=== PATIENT | female | born 1965 | race Caucasian/White ===

== ENCOUNTER 2020-09-23 15:22 | Inpatient (IN) | payer BC ==
[~2020-09-23] VITALS: Ht 165.1 cm; Wt 60.8 kg
--- NOTE | 2020-09-23 16:05 | Emergency Room Report ---
History of Present Illness General Chief Complaint: General Complaint Source: Patient Present Illness HPI 55-year-old female with history of BCIR here with abdominal pain and difficulty intubating. Patient has had the stoma for 8 years and has a history of one stoma revision. She says that over the past several days she has had difficulty and increased pain intubating. Denies fevers, chills, chest pain, palpitation, shortness of breath, back pain, nausea, vomiting, diarrhea, dysuria. Scheduled for stoma revision with Dr. Ivory. 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: Yes - 09/21/20 COVID-19 Screening: Negative COVID-19 COVID-19 Testing Source: drive thru Patient History Now: No Review of Systems All Other Systems: negative except mentioned in HPI Physical Exam Vital Signs Date Time Temp Pulse Resp B/P (MAP) Pulse Ox O2 Delivery O2 Flow Rate FiO2 09/23/20 15:25 98.6 98 19 124/71 (88) 98 Room Air Sp02 EP Interpretation: reviewed, normal General Appearance: no apparent distress, alert, non-toxic Head: normocephalic, atraumatic Eyes: bilateral eye normal inspection, bilateral eye PERRL ENT: hearing grossly normal, normal pharynx, no angioedema, normal voice Neck: full range of motion, supple/symm/no masses Respiratory: chest non-tender, lungs clear, normal breath sounds, speaking full sentences Cardiovascular #1: regular rate, rhythm, no edema Cardiovascular #2: 2+ carotid (R), 2+ carotid (L), 2+ radial (R), 2+ radial (L), 2+ dorsalis pedis (R), 2+ dorsalis pedis (L) Gastrointestinal: normal bowel sounds, non tender, soft, non-distended, no guarding, no rebound Rectal: deferred Genitourinary: normal inspection, no CVA tenderness Musculoskeletal: back normal, normal range of motion, gait/station normal, non- tender Neurologic: alert, motor strength/tone normal, oriented x3, sensory intact, responsive, speech normal Psychiatric: judgement/insight normal, memory normal, mood/affect normal, no suicidal/homicidal ideation Lymphatic: no adenopathy Medical Decision Making Diagnostic Impression: Primary Impression: Complication of ostomy ER Course 55-year-old female with BCIR here for preoperative labs. Patient scheduled for stoma revision tomorrow. She had normal vital signs and unremarkable labs in the emergency department. Covid test negative. Patient admitted to 3 E. under the care of Dr. Ivory. Laboratory Tests Test 09/23/20 16:30 09/23/20 17:30 White Blood Count 7.5 K/UL (4.8-10.8) Red Blood Count 3.98 M/UL (4.20-5.40) L Hemoglobin 11.3 G/DL (12.0-16.0) L Hematocrit 36.7 % (37.0-47.0) L Mean Corpuscular Volume 92 FL (80-99) Mean Corpuscular Hemoglobin 28.4 PG (27.0-31.0) Mean Corpuscular Hemoglobin Concent 30.7 G/DL (32.0-36.0) L Red Cell Distribution Width 13.9 % (11.6-14.8) Platelet Count 207 K/UL (150-450) Mean Platelet Volume 8.0 FL (6.5-10.1) Neutrophils (%) (Auto) 70.2 % (45.0-75.0) Lymphocytes (%) (Auto) 18.7 % (20.0-45.0) L Monocytes (%) (Auto) 7.8 % (1.0-10.0) Eosinophils (%) (Auto) 2.7 % (0.0-3.0) Basophils (%) (Auto) 0.6 % (0.0-2.0) Sodium Level 147 MMOL/L (136-145) H Potassium Level 2.8 MMOL/L (3.5-5.1) L Chloride Level 116 MMOL/L (98-107) H Carbon Dioxide Level 20 MMOL/L (21-32) L Anion Gap 11 mmol/L (5-15) Blood Urea Nitrogen 16 mg/dL (7-18) Creatinine 1.3 MG/DL (0.55-1.30) Estimated Glomerular Filtration Rate 42.8 mL/min (>60) Glucose Level 81 MG/DL (74-106) Calcium Level 7.9 MG/DL (8.5-10.1) L Total Bilirubin 0.1 MG/DL (0.2-1.0) L Aspartate Amino Transferase (AST) 15 U/L (15-37) Alanine Aminotransferase (ALT) 17 U/L (12-78) Alkaline Phosphatase 68 U/L (46-116) Total Protein 5.9 G/DL (6.4-8.2) L Albumin 2.7 G/DL (3.4-5.0) L Globulin 3.2 g/dL Albumin/Globulin Ratio 0.8 (1.0-2.7) L Prothrombin Time Pending Prothrombin Time INR Pending Activated Partial Thromboplast Time Pending Microbiology Date/Time Source Procedure Growth Status 09/23/20 16:00 Nasopharynx SARS-CoV-2 RdRp Gene Assay - Final Complete Last Vital Signs Date Time Temp Pulse Resp B/P (MAP) Pulse Ox O2 Delivery O2 Flow Rate FiO2 09/23/20 15:25 98.6 98 19 124/71 (88) 98 Room Air Tito Garcia M.D. Sep 23, 2020 16:05
--- NOTE | 2020-09-23 16:05 | NUR ---
ED Nurse Note:pt. came for BCIR surgery admition with dr. Ivory, pt. is A/Ox4 ambulatory, VSS, covid swab was done
[2020-09-23 16:43] LABS: BASOPHILS % (AUTO) 0.6 % (0.0-2.0); EOSINOPHILS % (AUTO) 2.7 % (0.0-3.0); HEMATOCRIT 36.7 % (37.0-47.0); HEMOGLOBIN 11.3 G/DL (12.0-16.0); LYMPHOCYTES % (AUTO) 18.7 % (20.0-45.0); MEAN CORPUSCULAR VOLUME 92 FL (80-99); MONOCYTES % (AUTO) 7.8 % (1.0-10.0); NEUTROPHILS % (AUTO) 70.2 % (45.0-75.0); PLATELET COUNT 207 K/UL (150-450); RED BLOOD COUNT 3.98 M/UL (4.20-5.40); RED CELL DISTRIBUTION WIDTH 13.9 % (11.6-14.8); WHITE BLOOD COUNT 7.5 K/UL (4.8-10.8)
--- NOTE | 2020-09-23 16:50 | NUR ---
ED Nurse Note:blood and swab was sent to labs
[2020-09-23 17:02] LABS: CALCIUM 7.9 MG/DL (8.5-10.1); CREATININE 1.3 MG/DL (0.55-1.30); POTASSIUM 2.8 MMOL/L (3.5-5.1)
[2020-09-23 17:03] VITALS: BP 124/71
[2020-09-23 17:07] LABS: ALBUMIN 2.7 G/DL (3.4-5.0); ALBUMIN/GLOBULIN RATIO 0.8 (1.0-2.7); BILIRUBIN,TOTAL 0.1 MG/DL (0.2-1.0)
[2020-09-23] MEDS ORDERED: [UNRECOGNIZED DRUG - OTHER] MC (18:26)
[2020-09-23] MEDS ORDERED: METAMIZOLE (18:26)
[2020-09-23] MEDS ORDERED: FLUDROCORTISON0.1 MG PO (18:26)
[2020-09-23] MEDS ORDERED: Zolpidem 5mg tab ORAL PRN ×2 (18:30→18:45)
--- NOTE | 2020-09-23 18:30 | NUR ---
ED Nurse Note:called report to 3 maty, pt. is taken up stairs
--- NOTE | 2020-09-23 18:32 | NUR ---
NURSE NOTES: Patient arrived on unit. Stable. Patient assisted to bed without incident. Patient instructed to use call light for assistance, verbalized understanding. Patient's stoma is on RLQ, patient won't allow RN to insert catheter and wants to insert catheter herself. Patient provided all supplies for catheter insertion. Patient is having difficulty getting catheter into pouch. Will continue to assist patient. Patient is in bed in locked and lowest position with call light within reach. All safety measures provided. Will continue to monitor.
--- NOTE | 2020-09-23 19:00 | NUR ---
NURSE NOTES: 28fr catheter inserted into stoma. secured with silk tape. Thick output noted.
[2020-09-23 19:02] VITALS: BP 98/70
--- NOTE | 2020-09-23 19:27 | NUR ---
HAND-OFF: Report given to Cara CHAVIS. Patient is stable.
--- NOTE | 2020-09-23 19:30 | NUR ---
NURSE NOTES: Received report & pt from PALMIRA Salazar. Pt in bed, a&ox4, in room air. No s/s of acute distress & no c/o pain at this time.Ileo cath intact & draining to gravity. Pt made aware of NPO status after midnight & pt verbalized understanding. Abdominal dressing intact. Tight upper chest port intact. Urine sample needed & pt informed to call RN once able to urinate to collect sample. Plan of care discussed. Addendum: 09/23/20 at 2141 by Cara Mccarthy RN Correction: Right upper chest subclavian catheter
[2020-09-23 20:00] VITALS: BP 91/57
[2020-09-23] MEDS: Dyna-Hex 2% Top Sol 2oz TOPIC SCH (20:13)
[2020-09-23] MEDS: D5 1/2NS w/KCl 20mEq 1,000 ML IV SCH (20:13)
--- NOTE | 2020-09-23 20:35 | NUR ---
NURSE NOTES: Verified with pt her home meds. However, pt did not want to surrender home meds to pharmacy the reason being is that she paid for the meds & there was a case that her meds were lost. Explained to pt risks & benefits but still refused. Will try again in AM. Pt also does not want 0000 & 0400 VS taken, states she wants to sleep but ok with Q3HR flushing.
[2020-09-23] MEDS ORDERED: VITAMIN B COMP1 EAC2 ORAL (21:24)
[2020-09-23] MEDS ORDERED: sodium chloride ORAL (21:24)
[2020-09-23] MEDS ORDERED: METHIMAZOLE5 MG PO (21:24)
[2020-09-23] MEDS ORDERED: POTASSIUM99 M3 PO (21:24)
[2020-09-23] MEDS ORDERED: ADVIL LIQUI-GE200 MG ORAL (21:24)
[2020-09-23] MEDS ORDERED: ZYRTEC10 MG ORAL (21:24)
[2020-09-23] MEDS ORDERED: [UNRECOGNIZED DRUG - OTHER] PO (21:24)
--- NOTE | 2020-09-23 23:41 | NUR ---
NURSE NOTES: urine collected for urine specimen (UA). Will bring down to lab.
[2020-09-24] VITALS (9 sets, daily range): BP systolic 90–104; BP diastolic 55–69
[2020-09-24 00:53] LABS: APPEARANCE,URINE CLEAR; BILIRUBIN, URINE NEGATIVE (NEGATIVE); COLOR,URINE PALE YELLOW; GLUCOSE, URINE (UA) NEGATIVE (NEGATIVE); KETONES,URINE NEGATIVE (NEGATIVE); LEUKOCYTE ESTERASE ,URINE 1+ (NEGATIVE); NITRITE,URINE NEGATIVE (NEGATIVE); PH,URINE 5 (4.5-8.0); PROTEIN,URINE 1+ (NEGATIVE); UROBILINOGEN,URINE NORMAL MG/DL (0.0-1.0)
[2020-09-24 06:09] LABS: BASOPHILS % (AUTO) 0.6 % (0.0-2.0); EOSINOPHILS % (AUTO) 3.9 % (0.0-3.0); HEMATOCRIT 37.7 % (37.0-47.0); HEMOGLOBIN 11.8 G/DL (12.0-16.0); MEAN CORPUSCULAR VOLUME 91 FL (80-99); MONOCYTES % (AUTO) 9.1 % (1.0-10.0); NEUTROPHILS % (AUTO) 63.3 % (45.0-75.0); PLATELET COUNT 188 K/UL (150-450); RED BLOOD COUNT 4.14 M/UL (4.20-5.40); RED CELL DISTRIBUTION WIDTH 13.5 % (11.6-14.8); WHITE BLOOD COUNT 5.3 K/UL (4.8-10.8)
[2020-09-24] MEDS: D5 1/2NS w/KCl 20mEq 1,000 ML IV SCH ×2 (06:30→18:50)
[2020-09-24 06:39] LABS: ALANINE AMINOTRANSFERASE 22 U/L (12-78); ALBUMIN 2.8 G/DL (3.4-5.0); ALBUMIN/GLOBULIN RATIO 0.9 (1.0-2.7); ALKALINE PHOSPHATASE 73 U/L (46-116); ANION GAP 7 mmol/L (5-15); ASPARTATE AMINO TRANSFERASE 19 U/L (15-37); BILIRUBIN,TOTAL 0.5 MG/DL (0.2-1.0); BLOOD UREA NITROGEN 15 mg/dL (7-18); CALCIUM 8.3 MG/DL (8.5-10.1); CARBON DIOXIDE 23 MMOL/L (21-32); CHLORIDE 111 MMOL/L (98-107); CREATININE 1.4 MG/DL (0.55-1.30); FERRITIN 43 NG/ML (8-388); POTASSIUM 3.9 MMOL/L (3.5-5.1); SODIUM 141 MMOL/L (136-145)
--- NOTE | 2020-09-24 06:39 | NUR ---
NURSE HAND-OFF: Important Events on Shift:new admit, watery ileo stool, 28Fr hargrove cath ileo to gravity. Patient Status: stable Diet: NPO Pending Orders: EGD today Pending Results/Labs: Pending MD notification:watery ileo output Latest Vital Signs: Temperature 97.7 , Pulse 77 , B/P 91 /57 , Respiratory Rate 16 , O2 SAT 95 , Room Air, O2 Flow Rate . Vital Sign Comment: none Latest Valle Fall Score: 35 Fall Risk: Medium Risk Safety Measures: Call light Within Reach, Bed Alarm , Side Rails Side Rails x2, Bed position Low and Locked. Fall Precautions: Door Sign Patient Fall Education Report given to PALMIRA Smrat.
[2020-09-24 07:25] LABS: IRON 68 ug/dL (50-175)
--- NOTE | 2020-09-24 07:45 | NUR ---
NURSE NOTES: Received report PALMIRA Marroquin. Pt in bed, a&ox4, able to make needs known. Breathing evne and unlabored in room air. No s/s of acute distress and no c/o pain at this time. Ileo cath RLQ intact & draining to gravity. Pt on NPO for GI procedure today. Abdominal dressing intact. Left upper chest subclavian cath intact and running IVF as ordered. Call light within reach. Will continue to monitor.
--- NOTE | 2020-09-24 08:35 | General Progress Note ---
Progress Note Progress Note H & P dictated. Admitted last night via ED with severe pain at Simon continent ileostomy stoma with severe pain with intubation to evacuate stool and recurring peristomal infeftion. 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
--- NOTE | 2020-09-24 09:00 | NUR ---
NURSE NOTES: Pt was seen by Dr. Ivory. Stoma dressing changed. Obtained order to resume Methimazole among home meds. Order carried out
--- NOTE | 2020-09-24 09:29 | History and Physical Report ---
DATE OF ADMISSION: 09/23/2020 Admitted from emergency room in the evening of September 23, 2020 HISTORY OF PRESENT ILLNESS: The patient is a 55-year-old female in overall stable health who presents with severe pain at the stoma of her Simon type of Kock pouch continent ileostomy with painful intubation to evacuate stool and recurring peristomal infections. 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 All of these operations have been done in [place]. For some time, the patient has developed excessive scar tissue around the stoma, but this has recently become very tight and very painful and difficult for her to intubate and the tissues tear when she inserts her 30-[place]est[place] Winter drainage catheter. She uses a small stent at night because a large stent will not enter the stoma opening. PAST MEDICAL HISTORY/MEDICATIONS: Methimazole for hyperthyroidism, IV fluids twice a week through a subcutaneous infusion port, salt tablets, and vitamin tablets. ALLERGIES: Penicillin, sulfanilamide, and erythromycin. OPERATIONS: Please see the list at the end of this dictation, including the fact that she underwent colectomy with ileostomy at age 15 PHYSICAL EXAMINATION: GENERAL: The patient is 5 feet 6 inches, 135 pounds, in no acute distress. VITAL SIGNS: Stable. HEENT: Within normal limits. LUNGS: Clear. HEART: Regular rhythm. BREASTS: Without masses. ABDOMEN: Soft. There is a long left paramedian scar and other right-sided scars. The stoma of her Simon continent ileostomy is low in the right lower quadrant with hypertrophic scar tissue. There is no evidence of abdominal wall hernia. PELVIS: Status post hysterectomy. RECTAL: Status post proctectomy. EXTREMITIES: Without edema. Pulses 2+ femoral to pedal bilateral NEUROLOGIC: Physiologic. IMPRESSION: 1. Malfunctioning Simon type of Kock pouch continent ileostomy with severe recurrent stoma stenosis and stricture, with severe pain during intubation and recurring and peristomal infections. 2. History of ulcerative colitis. 3. History of hyperthyroidism. 4. STATUS POST MULTIPLE ABDOMINAL OPERATIONS: 4.1. July 1980, at age 15, abdominal colectomy with Tamera ileostomy 4.2. January 1981, perineal proctectomy. 4.3. Simon continent ileostomy September 16, 2012. 4.4. Laparotomy for partial small bowel obstruction due to adhesions with small bowel resection April 2013 4.5. 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 4.6. Revision of stoma and resuturing of collar, June 2016. 4.7. Revision of stoma stenosis and repair of fistula to access segment, August 2016. 4.8. Repair of parastomal hernia and revision of stoma, August 2017. 4.9. Repair of parastomal hernia and repair of collar April 2018. 4.10. Insertion of venous access port to left chest, April 2018. 4.11. Office procedure with cautery of stoma stenosis, July 13, 2019 4.12. Hysterectomy 14 years ago. 4.13. cholecystectomy. PLAN: The patient will need fluid and electrolyte correction. In the emergency department her sodium was 147 and potassium 2.8. These have corrected to sodium 141 and potassium 3.9. Her albumin is 2.8. Her BUN is 15 and creatinine is 1.4. Other laboratory studies are still pending. She will undergo endoscopy of her Simon continent ileostomy with sedation by anesthesia and then decision will be made as to surgical revision of her stoma or whether she will need another laparotomy. She has been told and according to prior operative report, she has severe intra-abdominal adhesions. I have had a full discussion with the patient concerning her condition. Micheal Ivory M.D. DR: ANALY JOB#: [id number] CC: ELSA
--- NOTE | 2020-09-24 10:17 | NUR ---
CASE MANAGEMENT:INITIAL REVIEW 55 YR OLD FEMALE FROM HOME CC;GENERAL COMPLAINT SI;OSTOMY DYSFUNCTION 98.6 98 19 98/70 96% ON RA NA+ 147 K- 2.8 CL+ 116 CO2- 20 CA- 7.9 ALB- 2.7 UA+ PROTEIN 1+, BLOOD 1+, LEUKOCYTE ESTERASE 1+ COVID RAPID ~ NEGATIVE IS;KCL IV IVF NS BOLUS ADMITTED TO MED SURG MED SURG STATUS DCP;PENDING HOSPITAL STAY Addendum: 09/24/20 at 1353 by VICTOR M MONTAGUE LVN CM IS;TO SURGERY TODAY
--- NOTE | 2020-09-24 11:15 | Diagnostic Imaging Report ---
Indication: Cough Technique: One view of the chest Comparison: none Findings: Lungs and pleural spaces are clear. The heart size is normal. There is a left chest port catheter in good position. Impression: No acute process
[2020-09-24] MEDS ORDERED: fentaNYL 100 mcg/2 mL IV ONE (11:39)
[2020-09-24] MEDS ORDERED: Midazolam 2mg/2ml Inj ONE (11:40)
--- NOTE | 2020-09-24 11:47 | Anethesia Preoperative Eval ---
Anesthesia Pre-op PMH/ROS General Date of Evaluation: Sep 24, 2020 Time of Evaluation: 11:43 Anesthesiologist: Jazzy ASA Score: ASA 3 Mallampati Score Class I : Soft palate, uvula, fauces, pillars visible Class II: Soft palate, uvula, fauces visible Class III: Soft palate, base of uvula visible Class IV: Only hard plate visible Mallampati Classification: Class II Surgeon: Cachorro Diagnosis: Malfunctioning continent pouch Surgical Procedure: Pouch endoscopy Anesthesia History: none Family History: no anesthesia problems Allergies: Uncoded Allergies: ARYTHROMYCIN (Allergy, Unknown, 09/23/20) PENICILLIN (Allergy, Unknown, 09/23/20) Medications: see eMAR Patient NPO?: Yes Past Medical History Cardiovascular: Denies: HTN, CAD, PA, valve dz, arrhythmia, other Pulmonary: Denies: asthma, COPD, YOSSI, other Gastrointestinal/Genitourinary: Reports: GERD, CRI, other - h/o UC s/p total colectomy; Denies: ESRD Neurologic/Psychiatric: Reports: depression/anxiety; Denies: dementia, CVA, TIA, other Endocrine: Reports: hypothyroidism - hyperthyroid; Denies: DM, steroids, other HEENT: Denies: cataract (L), cataract (R), glaucoma, NELSON [place]OON (L), NELSON L[place]OON (R), other Hematology/Immune: Reports: anemia - mild; Denies: DVT, bleeding disorder, other Musculoskeletal/Integumentary: Denies: OA, RA, DJD, DDD, edema, other Other: other - malnourished PMH Narrative: as above PSxH Narrative: Multiple intraabdominal Sx see H&P Anesthesia Pre-op Phys. Exam Physician Exam Last Vital Signs Date Time Temp Pulse Resp B/P (MAP) Pulse Ox O2 Delivery O2 Flow Rate FiO2 09/24/20 09:00 Room Air 09/24/20 08:00 98.0 81 16 97/63 (74) 98 Constitutional: NAD Neurologic: CN 2-12 intact Cardiovascular: RRR, no M/R/G Respiratory: CTA Gastrointestinal: S/NT/ND Airway Exam Mallampati Score: Class II MO: limited Neck: stiff ROM: limited Teeth: intact Dentures: no upper, no lower Anesthesia Pre-op A/P Labs Hematology Test 09/23/20 16:30 09/24/20 05:30 White Blood Count 7.5 K/UL (4.8-10.8) 5.3 K/UL (4.8-10.8) Red Blood Count 3.98 M/UL (4.20-5.40) L 4.14 M/UL (4.20-5.40) L Hemoglobin 11.3 G/DL (12.0-16.0) L 11.8 G/DL (12.0-16.0) L Hematocrit 36.7 % (37.0-47.0) L 37.7 % (37.0-47.0) Mean Corpuscular Volume 92 FL (80-99) 91 FL (80-99) Mean Corpuscular Hemoglobin 28.4 PG (27.0-31.0) 28.6 PG (27.0-31.0) Mean Corpuscular Hemoglobin Concent 30.7 G/DL (32.0-36.0) L 31.4 G/DL (32.0-36.0) L Red Cell Distribution Width 13.9 % (11.6-14.8) 13.5 % (11.6-14.8) Platelet Count 207 K/UL (150-450) 188 K/UL (150-450) Mean Platelet Volume 8.0 FL (6.5-10.1) 8.3 FL (6.5-10.1) Neutrophils (%) (Auto) 70.2 % (45.0-75.0) 63.3 % (45.0-75.0) Lymphocytes (%) (Auto) 18.7 % (20.0-45.0) L 23.0 % (20.0-45.0) Monocytes (%) (Auto) 7.8 % (1.0-10.0) 9.1 % (1.0-10.0) Eosinophils (%) (Auto) 2.7 % (0.0-3.0) 3.9 % (0.0-3.0) H Basophils (%) (Auto) 0.6 % (0.0-2.0) 0.6 % (0.0-2.0) Coagulation Test 09/23/20 17:30 09/24/20 05:30 Prothrombin Time 10.8 SEC (9.30-11.50) 10.9 SEC (9.30-11.50) Prothromb Time International Ratio 1.0 (0.9-1.1) 1.0 (0.9-1.1) Activated Partial Thromboplast Time 24 SEC (23-33) 25 SEC (23-33) Chemistry Test 09/23/20 16:30 09/24/20 05:30 Sodium Level 147 MMOL/L (136-145) H 141 MMOL/L (136-145) Potassium Level 2.8 MMOL/L (3.5-5.1) L 3.9 MMOL/L (3.5-5.1) Chloride Level 116 MMOL/L (98-107) H 111 MMOL/L (98-107) H Carbon Dioxide Level 20 MMOL/L (21-32) L 23 MMOL/L (21-32) Anion Gap 11 mmol/L (5-15) 7 mmol/L (5-15) Blood Urea Nitrogen 16 mg/dL (7-18) 15 mg/dL (7-18) Creatinine 1.3 MG/DL (0.55-1.30) 1.4 MG/DL (0.55-1.30) H Estimat Glomerular Filtration Rate 42.8 mL/min (>60) 39.3 mL/min (>60) Glucose Level 81 MG/DL (74-106) 83 MG/DL (74-106) Calcium Level 7.9 MG/DL (8.5-10.1) L 8.3 MG/DL (8.5-10.1) L Total Bilirubin 0.1 MG/DL (0.2-1.0) L 0.5 MG/DL (0.2-1.0) Aspartate Amino Transf (AST/SGOT) 15 U/L (15-37) 19 U/L (15-37) Alanine Aminotransferase (ALT/SGPT) 17 U/L (12-78) 22 U/L (12-78) Alkaline Phosphatase 68 U/L (46-116) 73 U/L (46-116) Total Protein 5.9 G/DL (6.4-8.2) L 6.0 G/DL (6.4-8.2) L Albumin 2.7 G/DL (3.4-5.0) L 2.8 G/DL (3.4-5.0) L Globulin 3.2 g/dL 3.2 g/dL Albumin/Globulin Ratio 0.8 (1.0-2.7) L 0.9 (1.0-2.7) L Iron Level 68 ug/dL (50-175) Ferritin 43 NG/ML (8-388) Vitamin B12 Level > 2000 PG/ML (193-986) H Folate 73.2 NG/ML (8.6-58.9) H Risk Assessment & Plan Assessment: ASA 3 Plan: MAC Status Change Before Surgery: No Pre-Antibiotics Drug: as scheduled David Purcell MD Sep 24, 2020 11:47
--- NOTE | 2020-09-24 12:29 | Pre-Procedure Note/Attestation ---
Pre-Procedure Note/Attestation Complete Prior to Procedure Planned Procedure: not applicable Procedure Narrative: Simon continent ileostomy pouch endoscopy Indications for Procedure Pre-Operative Diagnosis: Recurrent stricture of Simon continent ileostomy stoma Attestation I attest that I discussed the nature of the procedure; its benefits; risks and complications; and alternatives (and the risks and benefits of such alternatives), prior to the procedure, with the patient (or the patient's legal front desk representative). I attest that, if there was a reasonable possibility of needing a blood transfusion, the patient (or the patient's legal front desk representative) was given the [facility] standardized written summary, pursuant to the [place] Blood Safety Act ([place] Health and Safety Code # 1645, as amended). I attest that I re-evaluated the patient just prior to the surgery and that there has been no change in the patient's H&P, except as documented below: none Micheal Ivory MD Sep 24, 2020 12:29
--- NOTE | 2020-09-24 12:45 | NUR ---
NURSE NOTES: Pt transferred to GI lab
[2020-09-24] MEDS ORDERED: NS 500ML IVPB ONE (12:50)
[2020-09-24] MEDS ORDERED: Sterile Water Irrig 1000ml IRRIG ONE (13:00)
[2020-09-24] MEDS ORDERED: NS Irrig 1000ml ONE (13:00)
--- NOTE | 2020-09-24 13:19 | Immediate Post-Op Evaluation ---
Immediate Post-Op Evalulation Immediate Post-Op Evalulation Procedure: Pouch endoscopy Date of Evaluation: Sep 24, 2020 Time of Evaluation: 13:16 IV Fluids: 300 Blood Products: none Estimated Blood Loss: none Urinary Output: none Blood Pressure Systolic: 100 Blood Pressure Diastolic: 64 Pulse Rate: 81 Respiratory Rate: 20 O2 Sat by Pulse Oximetry: 98 Temperature (Fahrenheit): 97.6 Pain Score (1-10): 1 Nausea: No Vomiting: No Complications none Patient Status: awake, patent, none Hydration Status: adequate David Purcell MD Sep 24, 2020 13:19
--- NOTE | 2020-09-24 13:20 | Brief Operative Note ---
Immediate Post Operative Note Operative Note Pre-op Diagnosis: Recurrent stricture of Simon continent ileostomy stoma Procedure: Simon continent ileostomy pouch endoscopy Post-op Diagnosis: same Post-op Diagnosis: same as pre-op Findings: consistent w/pre-op dx studies Surgeon: davida Anesthesiologist: otto Anesthesia: MAC Specimen: none Complications: none Condition: stable Fluids: see anesthesia record Estimated Blood Loss: none Drains: other - 28 Lujan to Simon pouch Implant(s) used?: No Micheal Ivory MD Sep 24, 2020 13:20
--- NOTE | 2020-09-24 13:53 | NUR ---
NURSE NOTES: Pt came back from GI procedure with stable condition.
--- NOTE | 2020-09-24 14:14 | Procedure Note ---
DATE OF PROCEDURE: 09/24/2020 ENDOSCOPY PROCEDURE ENDOSCOPIST: Micheal Ivory MD. ANESTHESIA: MAC anesthesia. ANESTHESIOLOGIST: David Purcell MD. PRE-ENDOSCOPIC DIAGNOSES: 1. Malfunctioning Simon continent ileostomy with recurrent stricture of stoma. 2. Status post total colectomy for ulcerative colitis with continent ileostomy x2 and multiple revisions. POST-ENDOSCOPY DIAGNOSES: 1. Malfunctioning Simon continent ileostomy with recurrent stricture of stoma. 2. Status post total colectomy for ulcerative colitis with continent ileostomy x2 and multiple revisions. ENDOSCOPY PERFORMED: Simon continent ileostomy pouch endoscopy. FINDINGS: A very small stoma orifice with excessive fibrosis with a normal access segment and normal pouch and normal nipple valve. DESCRIPTION OF PROCEDURE: With the patient positioned supine in the GI lab with sedation by Anesthesia, I used a GIF-P140 endoscope. I was able to enter the stoma without difficulty with a straight tract into the pouch with the distance from the stoma orifice to the tip of the valve approximately 8 cm, which is normal in this patient. The pouch is distensible. The mucosa is completely normal. Retroflexed views revealed a circumferentially well-formed nipple valve. Withdrawal views confirmed the above finding. After removing the endoscope I was able to insert a 28 Fr Lujan catheter into the pouch, and connected it to continuous gravity drainage. The patient tolerated the procedure well. She will require a revision of her recurrent stoma stricture. Micheal Ivory M.D. DR: ANALY JOB#: [id number] CC: ELSA
--- NOTE | 2020-09-24 14:30 | NUR ---
NURSE NOTES: Pt c/o tenderness on stoma site 01/13. Left message to Dr. Ivory. PALMIRA Gerard obtained new order PRN meds for pain from Dr. Ivory.
[2020-09-24] MEDS ORDERED: HYDROcodone/Acetamin 5/325 tab ORAL PRN (15:15)
--- NOTE | 2020-09-24 18:01 | NUR ---
NURSE NOTES: Received home meds from pt and sent to pharmacy. receipt # [id number]
--- NOTE | 2020-09-24 19:10 | NUR ---
NURSE NOTES: Received report from PALMIRA Smart. Pt is A&Ox4, call light within reach, side rails up x2, bed in lowest position. IVF infusing well. Will continue to monitor.
--- NOTE | 2020-09-24 19:30 | NUR ---
NURSE HAND-OFF: Important Events on Shift:[EGD done, resume one home med, start BCIR low residue diet] Patient Status: [stable] Diet: [BCIR low residue] Pending Orders: [] Pending Results/Labs:[] Pending MD notification:[] Latest Vital Signs: Temperature 97.6 , Pulse 78 , B/P 102 /59 , Respiratory Rate 16 , O2 SAT 96 , Room Air, O2 Flow Rate 3 . Vital Sign Comment: [stable] Latest Valle Fall Score: 35 Fall Risk: Medium Risk Safety Measures: Call light Within Reach, Bed Alarm , Side Rails Side Rails x2, Bed position Low and Locked. Fall Precautions: Door Sign Patient Fall Education Report given to [PALMIRA Thomas].
[2020-09-24] MEDS ORDERED: SODIUM CHLORIDE1 GM PO (20:12)
[2020-09-24] MEDS ORDERED: VITAMIN D325 MC1 PO (20:12)
[2020-09-24] MEDS ORDERED: MULTIVITAMINS1 EAC2 ORAL (20:12)
[2020-09-24] MEDS: Dyna-Hex 2% Top Sol 2oz TOPIC SCH (21:00)
[2020-09-24] MEDS: Iron Sucrose 100 MG in NS 55 ML IVPB SCH (21:03)
[2020-09-25] VITALS: BP 104/58
[2020-09-25 04:00] VITALS: BP 95/54
[2020-09-25 06:27] LABS: BASOPHILS % (AUTO) 0.9 % (0.0-2.0); EOSINOPHILS % (AUTO) 3.8 % (0.0-3.0); LYMPHOCYTES % (AUTO) 16.3 % (20.0-45.0); MEAN CORPUSCULAR VOLUME 92 FL (80-99); MONOCYTES % (AUTO) 7.8 % (1.0-10.0); NEUTROPHILS % (AUTO) 71.2 % (45.0-75.0); PLATELET COUNT 206 K/UL (150-450); RED BLOOD COUNT 4.56 M/UL (4.20-5.40); RED CELL DISTRIBUTION WIDTH 13.7 % (11.6-14.8); WHITE BLOOD COUNT 7.8 K/UL (4.8-10.8)
[2020-09-25 06:36] LABS: ALBUMIN 3.2 G/DL (3.4-5.0); ALBUMIN/GLOBULIN RATIO 0.9 (1.0-2.7); BILIRUBIN,TOTAL 0.3 MG/DL (0.2-1.0); CREATININE 1.3 MG/DL (0.55-1.30); PHOSPHORUS 3.8 MG/DL (2.5-4.9); POTASSIUM 4.1 MMOL/L (3.5-5.1)
--- NOTE | 2020-09-25 07:20 | NUR ---
NURSE HAND-OFF: Important Events on Shift: Encourage fluids Patient Status: calm Diet: BCIR low residue Pending Orders: Pending Results/Labs: Pending MD notification: Latest Vital Signs: Temperature 97.8 , Pulse 75 , B/P 95 /54 , Respiratory Rate 16 , O2 SAT 95 , Room Air, O2 Flow Rate 3 . Vital Sign Comment: VSS Latest Valle Fall Score: 35 Fall Risk: Medium Risk Safety Measures: Call light Within Reach, Bed Alarm , Side Rails Side Rails x2, Bed position Low and Locked. Fall Precautions: Door Sign Patient Fall Education Report given to PALMIRA Overton.
--- NOTE | 2020-09-25 07:21 | NUR ---
NURSE NOTES: Handoff received from William CHAVIS. PAtient is awake and alert, eating breakfast, no signs of acute distress noted. Patient reports needing better food and her vitamins she takes at home. Ileo is patent and draining to gravity. Left subclavian portocath noted, intact and running IVF as ordered. Bed is low and locked, side rails up x2, call light is within reach.
[2020-09-25 08:00] VITALS: BP 97/61
[2020-09-25] MEDS ORDERED: Ascorbic Acid 500mg tab ORAL PRN (08:00)
--- NOTE | 2020-09-25 08:35 | 48 Hour Post Anesthesia Eval ---
Post Anesthesia Evaluation Procedure: Pouch endoscopy Date of Evaluation: Sep 25, 2020 Time of Evaluation: 08:34 Blood Pressure Systolic: 102 0: 56 Pulse Rate: 78 Respiratory Rate: 22 Temperature (Fahrenheit): 97.8 O2 Sat by Pulse Oximetry: 98 Airway: patent Nausea: No Vomiting: No Pain Intensity: 2 Hydration Status: adequate Cardiopulmonary Status: stable Mental Status/LOC: patient returned to baseline Follow-up Care/Observations: n/a Post-Anesthesia Complications: none Follow-up care needed: N/A David Purcell MD Sep 25, 2020 08:35
--- NOTE | 2020-09-25 09:09 | General Progress Note ---
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 Micheal Ivory MD Sep 25, 2020 09:09
[2020-09-25] MEDS: Vitamin B Complex Tab ORAL SCH (09:57)
[2020-09-25] MEDS: Sodium Chloride 1gm Tab ORAL SCH ×2 (09:57→17:06)
--- NOTE | 2020-09-25 10:40 | NUR ---
CASE MANAGEMENT:REVIEW SI;OSTOMY DYSFUNCTION 98.6 87 22 90/55 95% ON RA IS;NaCL PO BID VENOFER IV QD TAPAZOLE PO QD MED SURG STATUS DCP;FROM HOME PLAN;Surgery to revise Simon stoma in AM Pre-op IV antibiotics continue BCIR diet today with supplemental IV fluids via her infusion port
[2020-09-25 12:00] VITALS: BP_SYST 101; BP_SYST 145; BP_DIAS 70
--- NOTE | 2020-09-25 13:12 | Anethesia Preoperative Eval ---
Anesthesia Pre-op PMH/ROS General Date of Evaluation: Sep 25, 2020 Time of Evaluation: 13:11 Anesthesiologist: albert ASA Score: ASA 3 Mallampati Score Class I : Soft palate, uvula, fauces, pillars visible Class II: Soft palate, uvula, fauces visible Class III: Soft palate, base of uvula visible Class IV: Only hard plate visible Mallampati Classification: Class II Surgeon: Cachorro Diagnosis: malfuncion Barenett Pouch Surgical Procedure: Revision of pouch Anesthesia History: none Family History: no anesthesia problems Allergies: Coded Allergies: SULFA (SULFONAMIDE ANTIBIOTICS) (Verified Allergy, Severe, HIVES, SHORTNESS OF BREATH, 09/24/20) Uncoded Allergies: ARYTHROMYCIN (Allergy, Unknown, 09/23/20) PENICILLIN (Allergy, Unknown, 09/23/20) Medications: see eMAR Patient NPO?: Yes NPO Date: Sep 25, 2020 NPO Time: 00:01 Past Medical History Cardiovascular: Denies: HTN, CAD, [place], valve dz, arrhythmia, other Pulmonary: Denies: asthma, COPD, YOSSI, other Gastrointestinal/Genitourinary: Reports: GERD, CRI Neurologic/Psychiatric: Reports: depression/anxiety; Denies: dementia, CVA, TIA, other Endocrine: Denies: DM, hypothyroidism, steroids, other HEENT: Denies: cataract (L), cataract (R), glaucoma, ILIAMNA (L), ILIAMNA (R), other Hematology/Immune: Reports: anemia; Denies: DVT, bleeding disorder, other Musculoskeletal/Integumentary: Denies: OA, RA, DJD, DDD, edema, other Other: other - malnouished PSxH Narrative: Simon pouch surgery 09/24/20 Anesthesia Pre-op Phys. Exam Physician Exam Last Vital Signs Date Time Temp Pulse Resp B/P (MAP) Pulse Ox O2 Delivery O2 Flow Rate FiO2 09/25/20 12:00 101/70 (80) 09/25/20 12:00 98.4 85 18 96 09/25/20 09:00 Room Air 09/24/20 13:20 3 Constitutional: NAD Neurologic: CN 2-12 intact Cardiovascular: RRR Respiratory: CTA Gastrointestinal: S/NT/ND Airway Exam Mallampati Classification 2 Mallampati Score: Class II MO: limited Neck: stiff TMD: limited ROM: limited Dentures: no upper, no lower Anesthesia Pre-op A/P Labs Hematology Test 09/25/20 05:30 White Blood Count 7.8 K/UL (4.8-10.8) Red Blood Count 4.56 M/UL (4.20-5.40) Hemoglobin 13.0 G/DL (12.0-16.0) Hematocrit 42.0 % (37.0-47.0) Mean Corpuscular Volume 92 FL (80-99) Mean Corpuscular Hemoglobin 28.6 PG (27.0-31.0) Mean Corpuscular Hemoglobin Concent 31.0 G/DL (32.0-36.0) L Red Cell Distribution Width 13.7 % (11.6-14.8) Platelet Count 206 K/UL (150-450) Mean Platelet Volume 7.8 FL (6.5-10.1) Neutrophils (%) (Auto) 71.2 % (45.0-75.0) Lymphocytes (%) (Auto) 16.3 % (20.0-45.0) L Monocytes (%) (Auto) 7.8 % (1.0-10.0) Eosinophils (%) (Auto) 3.8 % (0.0-3.0) H Basophils (%) (Auto) 0.9 % (0.0-2.0) Chemistry Test 09/25/20 05:30 Sodium Level 141 MMOL/L (136-145) Potassium Level 4.1 MMOL/L (3.5-5.1) Chloride Level 111 MMOL/L (98-107) H Carbon Dioxide Level 21 MMOL/L (21-32) Anion Gap 10 mmol/L (5-15) Blood Urea Nitrogen 10 mg/dL (7-18) Creatinine 1.3 MG/DL (0.55-1.30) Estimat Glomerular Filtration Rate 42.8 mL/min (>60) Glucose Level 103 MG/DL (74-106) Calcium Level 9.0 MG/DL (8.5-10.1) Phosphorus Level 3.8 MG/DL (2.5-4.9) Magnesium Level 2.0 MG/DL (1.8-2.4) Total Bilirubin 0.3 MG/DL (0.2-1.0) Aspartate Amino Transf (AST/SGOT) 22 U/L (15-37) Alanine Aminotransferase (ALT/SGPT) 22 U/L (12-78) Alkaline Phosphatase 82 U/L (46-116) Total Protein 6.8 G/DL (6.4-8.2) Albumin 3.2 G/DL (3.4-5.0) L Globulin 3.6 g/dL Albumin/Globulin Ratio 0.9 (1.0-2.7) L Studies Pre-op Studies: EKG - sr Risk Assessment & Plan Assessment: Re assess in am Plan: GETA Status Change Before Surgery: Corie Jones BOX STRAPPER Sep 25, 2020 13:12
[2020-09-25] MEDS: D5 1/2NS w/KCl 20mEq 1,000 ML IV SCH (13:58)
[2020-09-25 15:50] VITALS: BP 86/63
--- NOTE | 2020-09-25 18:00 | NUR ---
NURSE NOTES: true ileo output: 1020 urine output: 1200. Patient ambulated in hallways x2 today. Ileo dressing changed x1 after her shower, very little staining noted on inner 4x4. no reports of pain or discomfort during shift.
--- NOTE | 2020-09-25 18:25 | NUR ---
NURSE HAND-OFF: Important Events on Shift:[consent signed for sx tomorrow] Patient Status: stable Diet: regular Pending Orders: Pending Results/Labs: Pending MD notification: Latest Vital Signs: Temperature 98.0 , Pulse 91 , B/P 86 /63 , Respiratory Rate 18 , O2 SAT 93 , Room Air, O2 Flow Rate 3 . Vital Sign Comment: stable, BP runs 90s over 60s Latest Valle Fall Score: 35 Fall Risk: Medium Risk Safety Measures: Call light Within Reach, Bed Alarm , Side Rails Side Rails x2, Bed position Low and Locked. Fall Precautions: Door Sign Patient Fall Education Report given to Basilio CHAVIS.
--- NOTE | 2020-09-25 19:10 | NUR ---
NURSE NOTES: received pt and report from PALMIRA Overton. pt alert and oriented x 4 with no acute s/s of distress and no co pain. Ileo noted and draining. Port a cath patent, clean dry and intact, running fluids as ordered. Plan of care discussed.
[2020-09-25 20:00] VITALS: BP 90/57
--- NOTE | 2020-09-25 20:15 | NUR ---
NURSE NOTES: pt ambulating around room, asked pt to sit down for vitals, alert and oriented x 4 follows commands, no acute s/s of distress, no co pain. vital signs are stable at this time.
[2020-09-25] MEDS: Iron Sucrose 100 MG in NS 55 ML IVPB SCH (20:27)
[2020-09-25] MEDS: Dyna-Hex 2% Top Sol 2oz TOPIC SCH (20:27)
[2020-09-26] VITALS (15 sets, daily range): BP systolic 90–110; BP diastolic 53–67
--- NOTE | 2020-09-26 | NUR ---
NURSE NOTES: pt refused vital signs at this time stating she wants to sleep well for her scheduled surgery. pt in no acute distress at this time and no co pain at the moment.
--- NOTE | 2020-09-26 04:10 | NUR ---
NURSE NOTES: pt allowed vitals at this time of which are stable. blood pressure low but trends this way. pt is asymptomatic wo any dizziness or lightheadedness. alert and oriented x 4, no acute distress and no co pain at this time.
--- NOTE | 2020-09-26 04:15 | NUR ---
NURSE NOTES: pt vital signs stable. pt in no acute distress. patient with co 8/10 pain, pain medication will be given. pt had large bowel movement, aurora howell. pt states relief from having BM. will follow up on patients pain. Addendum: 09/26/20 at 0458 by Basilio Irving RN This note was written in error. Please disregard.
--- NOTE | 2020-09-26 07:14 | NUR ---
NURSE HAND-OFF: Important Events on Shift:NA Patient Status: stable Diet: NPO after midnight, preop Pending Orders: nA Pending Results/Labs:NA Pending MD notification:NA Latest Vital Signs: Temperature 97.9 , Pulse 74 , B/P 90 /54 , Respiratory Rate 16 , O2 SAT 97 , Room Air, O2 Flow Rate 3 . Vital Sign Comment: stable through the shift Latest Valle Fall Score: 35 Fall Risk: Medium Risk Safety Measures: Call light Within Reach, Bed Alarm , Side Rails Side Rails x2, Bed position Low and Locked. Fall Precautions: Door Sign Patient Fall Education Report given to PALMIRA Overton.
--- NOTE | 2020-09-26 07:16 | NUR ---
NURSE NOTES: Handoff received from Basilio RN. Patient is awake and alert, no signs of acute distress noted, breathing is even and unlabored on room air. Ileo is patent and draining to gravity. Left subclavian portocath is intact and running IVF as ordered. Patient updated on plan of care. Bed is low and locked, side rails up x2, call light is within reach.
--- NOTE | 2020-09-26 08:02 | Pre-Procedure Note/Attestation ---
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 I attest that, if there was a reasonable possibility of needing a blood transfusion, the patient (or the patient's legal promotions representative) was given the [facility] standardized written summary, pursuant to the Waldo Lam[place] Blood Safety Act ([place] Health and Safety Code # 1645, as amended). I attest that I re-evaluated the patient just prior to the surgery and that there has been no change in the patient's H&P, except as documented below: none Micheal Ivory MD Sep 26, 2020 08:02
[2020-09-26] MEDS: Sodium Chloride 1gm Tab ORAL SCH ×2 (08:18→17:29)
[2020-09-26] MEDS: Vitamin B Complex Tab ORAL SCH (08:18)
--- NOTE | 2020-09-26 09:42 | NUR ---
RD ASSESSMENT & RECOMMENDATIONS SEE CARE ACTIVITY FOR COMPLETE ASSESSMENT DAILY ESTIMATED NEEDS: Needs based on Pending surgery, GI 61.4kg 25-30 kcals/kg 5895-4926 total kcals 1-1.5 g protein/kg 61-92 g total protein 25-30 mL/kg 0672-0577 total fluid mLs NUTRITION DIAGNOSIS: Altered GI fxn related to ileostomy malfunction as evidenced by pt w/ BCIR ileo, w/ pending surgery for stoma revision, NPO at this time. CURRENT DIET: NOW NPO PO DIET RECOMMENDATIONS: Per MD TPN Comment: CONSULT RD W/ PROLONGED NPO/ ILEUS ADDITIONAL RECOMMENDATIONS: 1) Monitor progress, NPO status, need for TPN 2) Maintain D5 while NPO 3) Obtain a standing weight as able 4) Checks lytes daily while NPO
[2020-09-26] MEDS ORDERED: LORazepam Inj 2mg/ml 1ml IV PRN (10:00)
[2020-09-26] MEDS ORDERED: Atropine Sulfate 0.4mg/ml inj IVP PRN (10:00)
[2020-09-26] MEDS ORDERED: Midazolam 2mg/2ml Inj IVP PRN (10:00)
[2020-09-26] MEDS ORDERED: DiphenhydrAMINE 50mg/ml Inj IVP PRN (10:00)
[2020-09-26] MEDS ORDERED: fentaNYL 100 mcg/2 mL IV PRN (10:00)
[2020-09-26] MEDS ORDERED: Meperidine 25mg/1ml Inj (FOR RIGORS ONLY) IV PRN (10:00)
[2020-09-26] MEDS ORDERED: LR 1000ml 1,000 ML IVLG SCH (10:00)
[2020-09-26] MEDS ORDERED: HYDROcodone/Acetamin 5/325 tab ORAL PRN (10:00)
[2020-09-26] MEDS ORDERED: Labetalol 5mg/ml 20ml vial IV PRN (10:00)
[2020-09-26] MEDS ORDERED: oxyCODONE HCL/Acetaminophen 5/325mg ORAL PRN (10:00)
[2020-09-26] MEDS ORDERED: Metoclopramide 10mg/2ml Inj IVP PRN (10:00)
[2020-09-26] MEDS ORDERED: HYDROcodone/Acetamin 7.5/325 tab ORAL PRN (10:00)
[2020-09-26] MEDS ORDERED: Ketorolac 30mg Inj IV PRN ×2 (10:00)
[2020-09-26] MEDS ORDERED: Hydromorphone 0.5mg/0.5ml inj IVP PRN (10:00)
[2020-09-26] MEDS ORDERED: Acetaminophen (Non formulary) 100 ML IV ONE (10:00)
--- NOTE | 2020-09-26 10:00 | Immediate Post-Op Evaluation ---
Immediate Post-Op Evalulation Immediate Post-Op Evalulation Procedure: Revision Simon Pouch Date of Evaluation: Sep 26, 2020 Time of Evaluation: 12:49 IV Fluids: 400 LR Blood Products: 0 Estimated Blood Loss: 10 Urinary Output: 0 Blood Pressure Systolic: 101 Blood Pressure Diastolic: 61 Pulse Rate: 104 Respiratory Rate: 16 O2 Sat by Pulse Oximetry: 95 Temperature (Fahrenheit): 98.1 Pain Score (1-10): 2 Nausea: No Vomiting: No Complications 0 Patient Status: awake, reacts, patent, extubated, none Hydration Status: adequate Drug: Flagyl 500 mg IV Given Within 1 Hr of Incision: Yes Time Given: 11:44 Blayne Pizarro MD Sep 26, 2020 10:00
[2020-09-26] MEDS ORDERED: Bacitracin 50000 Units Vial ONE (10:13)
[2020-09-26] MEDS ORDERED: NeoSporin Gu Irrig 1ml Amp IRRIG ONE (10:13)
[2020-09-26] MEDS ORDERED: Lidocaine 1% MPF 10mg/ml 5ml ONE (10:22)
[2020-09-26] MEDS ORDERED: Sodium Chloride 10ml vial INJ ONE (10:22)
[2020-09-26] MEDS ORDERED: Rocuronium Bromide 50mg/5ml Inj IV ONE (10:27)
[2020-09-26] MEDS ORDERED: NS Irrig 1000ml IRRIG ONE ×2 (10:28→11:52)
[2020-09-26] MEDS ORDERED: fentaNYL 100 mcg/2 mL IV ONE (10:35)
--- NOTE | 2020-09-26 10:40 | NUR ---
NURSE NOTES: Patient left for surgery in stable condition.
[2020-09-26] MEDS ORDERED: Sterile Water Irrig 1000ml IRRIG ONE (11:30)
[2020-09-26] MEDS ORDERED: LR 1000ml ONE (11:30)
[2020-09-26] MEDS ORDERED: HYDROmorphone 1mg/ml Carpuject SUBQ PRN (12:30)
--- NOTE | 2020-09-26 12:37 | Brief Operative Note ---
Immediate Post Operative Note Operative Note Pre-op Diagnosis: Recurrent stricture of Simon continent ileostomy stoma Procedure: Revision of recurrent stricture of Simon continent ileostomy stoma Post-op Diagnosis: same Post-op Diagnosis: same as pre-op Findings: consistent w/pre-op dx studies Surgeon: davida Anesthesiologist: diana Anesthesia: general Specimen: yes - peristomal scar Complications: none Condition: stable Fluids: see anesthesia record Estimated Blood Loss: none Drains: other - 28 Fr to Ismon pouch Implant(s) used?: No Micheal Ivory MD Sep 26, 2020 12:37
--- NOTE | 2020-09-26 12:45 | NUR ---
CASE MANAGEMENT:REVIEW SI;OSTOMY DYSFUNCTION TO SURGERY: JESSICA CONTINENT ILEOSTOMY STOMA STRICTURE REVISION 98.1 113 19 100/63 97% ON RA IS;FLAGYL IV Q6 LEVAQUIN IV QD VENOFER IV HS IVF D5W @ 100 ML/HR MED SURG STATUS DCP;FROM HOME
--- NOTE | 2020-09-26 14:05 | NUR ---
NURSE NOTES: Patient returned from surgery in stable condition. Handoff received Hanna CHAVIS. Patient awake and alert, no signs of acute distress. No reports of pain or discomfort at this time. L subclavian portocath running TKO. 28f Ileo catheter draining to gravity. Bed is low and locked, side rails up x2, call light is within reach.
[2020-09-26] MEDS: D5 1/2NS w/KCl 20mEq 1,000 ML IV SCH ×2 (14:22→20:39)
--- NOTE | 2020-09-26 18:29 | Operative Note - Dictated ---
DATE OF OPERATION: 09/26/2020 SURGEON: Micheal Ivory MD TELEPHONE INTERVIEWER: None. ANESTHESIOLOGIST: Blayne Pizarro MD TYPE OF ANESTHESIA: General. PREOPERATIVE DIAGNOSES: 1. Simon continent ileostomy, recurrent stoma stricture. 2. History of ulcerative colitis. 3. STATUS POST MULTIPLE ABDOMINAL OPERATIONS: 3.1. 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 3.2. Perineal proctectomy in January 1981. 3.3. 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 3.4. Laparotomy for partial small-bowel obstruction due to adhesions with small-bowel obstruction in April 2013. 3.5. 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 3.6. Revision of stoma and resuturing of collar in June 2016. 3.7. Revision of stoma stenosis and repair of fistula to access segment in August 2016. 3.8. Repair of parastomal hernia and revision of stoma in August 2017. 3.9. Repair of parastomal hernia and repair of collar in April 2018. 3.10. Hysterectomy 14 years ago. 3.11. Cholecystectomy years ago. 3.12. Office procedure with cautery of stoma stenosis on July 13, 2019. (All of these operations were done in [place]). POSTOPERATIVE DIAGNOSES: 1. Simon continent ileostomy, recurrent stoma stricture. 2. History of ulcerative colitis. 3. Status post multiple abdominal operations. 3.1. 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 3.2. Perineal proctectomy in January 1981. 3.3. 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 3.4. Laparotomy for partial small-bowel obstruction due to adhesions with small-bowel obstruction in April 2013. 3.5. 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 3.6. Revision of stoma and resuturing of collar in June 2016. 3.7. Revision of stoma stenosis and repair of fistula to access segment in August 2016. 3.8. Repair of parastomal hernia and revision of stoma in August 2017. 3.9. Repair of parastomal hernia and repair of collar in April 2018. 3.10. Hysterectomy 14 years ago. 3.11. Cholecystectomy years ago. 3.12. Office procedure with cautery of stoma stenosis on July 13, 2019. (All of these operations were done in [place]). OPERATION PERFORMED: Revision of Simon continent ileostomy, recurrent stoma stricture. DESCRIPTION OF PROCEDURE: The patient was taken to the operating room and under general anesthesia with sequential compression device stockings in place, she was prepped and draped in usual fashion. The stoma was very low in the right lower quadrant and it was clear that there was mucosa nearly to the edge along the inferior border, but the mucosa had retracted along the superior border. Based on all the prior operations, it was clear that trying to mobilize this would require a combined abdominal approach, which in this patient I believe was contraindicated at this time. I excised a wedge-shaped segment of severe fibrotic tissue at the 3 o'clock medial aspect of the stoma and elevated the mucosa up to the skin from 3 o'clock to 12 o'clock and from 3 o'clock to 6 o'clock area. The remaining of the stoma was really an epithelialized tract of fibrous tissue without mucosa. It was clear that to try and bring the mucosa up to the skin circumferentially would require major laparotomy, which in this patient was likely contraindicated. Since her problem was painful intubation, releasing the cicatrix should provide symptomatic relief and she has a well-formed tract. After excising the scar tissue, I utilized two sutures of 2-0 chromic on SH needles, starting at the 3 o'clock going to 12 o'clock continuous locking suture and then starting at 3 o'clock going to 6 o'clock with continuous locking suture. A 28-Wolof Lujan catheter was readily inserted into the pouch confirmed by irrigation and sutured to the skin with 2-0 silk suture and flushed and connected to a gravity drainage bag. Dry sterile dressings were applied. Final sponge and needle counts were correct. The patient tolerated the procedure well and left the operating room in good condition. Micheal Ivory M.D. DR: DIVYA JOB#: [id number] CC: ELSA
--- NOTE | 2020-09-26 18:34 | NUR ---
NURSE HAND-OFF: Important Events on Shift:[BCIR stoma revision] Patient Status: stable Diet: regular Pending Orders: Pending Results/Labs: Pending MD notification: Latest Vital Signs: Temperature 97.9 , Pulse 67 , B/P 100 /64 , Respiratory Rate 18 , O2 SAT 98 , Nasal Cannula, O2 Flow Rate 3 . Vital Sign Comment: stable Latest Valle Fall Score: 35 Fall Risk: Medium Risk Safety Measures: Call light Within Reach, Bed Alarm , Side Rails Side Rails x2, Bed position Low and Locked. Fall Precautions: Door Sign Patient Fall Education Report given to Elvira CHAVIS.
--- NOTE | 2020-09-26 19:43 | NUR ---
NURSES NOTE: Received pt from PALMIRA Overton. Rounds made. Pt in bed, A/OX4, denies pain at this time. No outward s/s of distress noted. Breathing is even and unlabored on 2 L nasal canula. Ileo, RLQ, in place to be flushed Q3H. Dressing, mid abdomen, is clean dry and intact. L subclavian portacath, in place, infusing IVF without incident. Pt ambulated to the restroom independently successfully post op day 1. All due medications will be administered. Pt will continue to be monitored.
[2020-09-26] MEDS: Dyna-Hex 2% Top Sol 2oz TOPIC SCH (20:38)
[2020-09-26] MEDS: Iron Sucrose 100 MG in NS 55 ML IVPB SCH (20:38)
[2020-09-27] VITALS: BP 101/60
[2020-09-27 04:00] VITALS: BP 98/59
[2020-09-27 06:21] LABS: BASOPHILS % (AUTO) 0.2 % (0.0-2.0); EOSINOPHILS % (AUTO) 0.3 % (0.0-3.0); HEMATOCRIT 38.8 % (37.0-47.0); HEMOGLOBIN 12.3 G/DL (12.0-16.0); MEAN CORPUSCULAR VOLUME 91 FL (80-99); NEUTROPHILS % (AUTO) 83.5 % (45.0-75.0); PLATELET COUNT 218 K/UL (150-450); RED BLOOD COUNT 4.26 M/UL (4.20-5.40); RED CELL DISTRIBUTION WIDTH 13.3 % (11.6-14.8); WHITE BLOOD COUNT 10.2 K/UL (4.8-10.8)
[2020-09-27 06:34] LABS: CALCIUM 7.6 MG/DL (8.5-10.1); CREATININE 1.5 MG/DL (0.55-1.30)
[2020-09-27 06:36] LABS: PHOSPHORUS 2.3 MG/DL (2.5-4.9)
--- NOTE | 2020-09-27 07:09 | NUR ---
NURSE HAND-OFF: Important Events on Shift:[Pt doing well NOC shift 1st night post op. No c/o pain] Patient Status: [stable] Diet: [regular no fruits or vegetables] Pending Orders: [n/a] Pending Results/Labs:[n/a- phos low at 2.3] Pending MD notification:[n/a] Latest Vital Signs: Temperature 98.0 , Pulse 85 , B/P 98 /59 , Respiratory Rate 18 , O2 SAT 95 , Nasal Cannula, O2 Flow Rate 2.0 . Vital Sign Comment: [wnl- bp runs low normal] Latest Valle Fall Score: 35 Fall Risk: Medium Risk Safety Measures: Call light Within Reach, Bed Alarm , Side Rails Side Rails x2, Bed position Low and Locked. Fall Precautions: Door Sign Patient Fall Education Report given to [].
--- NOTE | 2020-09-27 07:15 | 48 Hour Post Anesthesia Eval ---
Post Anesthesia Evaluation Procedure: Revision Simon Pouch Date of Evaluation: Sep 27, 2020 Time of Evaluation: 07:14 Blood Pressure Systolic: 98 0: 59 Pulse Rate: 85 Respiratory Rate: 18 Temperature (Fahrenheit): 98 O2 Sat by Pulse Oximetry: 95 Airway: patent Nausea: No Vomiting: No Pain Intensity: 2 Hydration Status: adequate Cardiopulmonary Status: Stable Mental Status/LOC: patient returned to baseline Follow-up Care/Observations: 0 Post-Anesthesia Complications: 0 Follow-up care needed: N/A Blayne Pizarro MD Sep 27, 2020 07:15
--- NOTE | 2020-09-27 07:48 | NUR ---
HAND OFF: Report given to isabel Garza
[2020-09-27 08:00] VITALS: BP 98/58
[2020-09-27] MEDS: D5 1/2NS w/KCl 20mEq 1,000 ML IV SCH (08:56)
[2020-09-27] MEDS: Vitamin B Complex Tab ORAL SCH (08:56)
[2020-09-27] MEDS: Sodium Chloride 1gm Tab ORAL SCH ×2 (08:57→18:49)
[2020-09-27] MEDS: Potassium Phosphate 15mm/250ml 250 ML IVPB SCH ×2 (10:06→14:28)
--- NOTE | 2020-09-27 11:21 | NUR ---
Substation DesignerBusiness Risk Analyst SI: Ostomy dysfunction, Surgical Revision Simon continent ileostomy stricture Revision T-98.7, HR 90, RR 21, BP 98/58, O2 sat 99% Creatinine 1.5 IS: Potassium Phosphate IV q 4 h Levofloxacin IV Q 24h NaCL PO BID Florinef PO BID Zyrtec PO QD Tapazole PO QD Iron Sucrose IV D5/NS w/KCL IV @ 50cc/hr Dilaudid sq prn [place] sq prn Med Surg Status
--- NOTE | 2020-09-27 11:24 | General Progress Note ---
Progress Note Progress Note AVSS c/o pain left middle toe due to stubbing her toe yesterday in her room pre-op. Mild peristomal pain from surgery Abdomen soft, stoma healing nicely Urine 1800 BCIR ileo 1360 BUN 14 Cr 1.5 Phos 2.3 Imp: Stable Plan: continue IV antibiotics and maintain indwelling Simon pouch catheter to continuous drainage Infuse phos continue IV fluids 50cc/hr reg diet without roughage to avoid plugging catheter XRay left foot Micheal Ivory MD Sep 27, 2020 11:24
[2020-09-27 11:56] VITALS: BP 110/66
--- NOTE | 2020-09-27 15:29 | Diagnostic Imaging Report ---
Indication: Foot pain status post injury Technique: 3 views of the left foot Comparison: None Findings: There is a tiny crescentic density noted adjacent to the head of the third distal phalanx which may represent a tiny chip fracture. Otherwise no acute fractures identified. Lisfranc alignment of the foot appears maintained. No ankle joint effusion. IMPRESSION: Tiny calcific density adjacent to the head of the third distal phalanx which may represent a tiny chip fracture.
[2020-09-27] MEDS ORDERED: NS 500ML ONE (16:03)
[2020-09-27] MEDS ORDERED: Tubing IV Secondary IV ONE (16:03)
[2020-09-27 16:06] VITALS: BP 92/65
[2020-09-27] MEDS: HYDROcodone/Acetamin 5/325 tab ORAL PRN (16:11)
--- NOTE | 2020-09-27 19:55 | NUR ---
NURSE HAND-OFF: Important Events on Shift: Pt's foot XR showed possible fx; arrived from out of town. Patient Status: Stable Diet: Regular Pending Orders: None Pending Results/Labs: None Pending MD notification: None Latest Vital Signs: Temperature 97.7 , Pulse 98 , B/P 92 /65 , Respiratory Rate 21 , O2 SAT 99 , Nasal Cannula, O2 Flow Rate 2.0 . Vital Sign Comment: Stable Latest Valle Fall Score: 35 Fall Risk: Medium Risk Safety Measures: Call light Within Reach, Bed Alarm , Side Rails Side Rails x2, Bed position Low and Locked. Fall Precautions: Door Sign Patient Fall Education Report given to PALMIRA Zayas.
[2020-09-27 20:00] VITALS: BP 82/51
--- NOTE | 2020-09-27 20:01 | NUR ---
NURSES NOTE: Received report from PAMLIRA Velasquez. Rounds completed. Pt in bed, sleeping, awakens to name easily. also occupying room. No outward s/s of distress noted. Breathing pattern is even and unlabored on RA. Ileo in place, draining to gravity to be flushed Q3H. IV in place, infusing IVF without incident. All due medications will be administered. Bed at lowest level. Call light within reach. Pt will continue to be monitored.
--- NOTE | 2020-09-27 20:45 | NUR ---
NURSE NOTE: 1999 BP 82/51- pt asymptomatic. Dr. Ivory called to be made aware. New order for NS w/ 20KCL at 50cc per hr fluid order placed. No other new orders at this time. Pt will continue to be monitored.
[2020-09-27] MEDS ORDERED: NS w/KCl 20mEq 1000ml 1,000 ML IV SCH (21:00)
[2020-09-27] MEDS: Iron Sucrose 100 MG in NS 55 ML IVPB SCH (21:16)
[2020-09-27] MEDS: Dyna-Hex 2% Top Sol 2oz TOPIC SCH (21:16)
[2020-09-27] MEDS: NS w/KCl 20mEq 1000ml 1,000 ML IV SCH (22:00)
[2020-09-28] VITALS (8 sets, daily range): BP systolic 75–102; BP diastolic 49–64
[2020-09-28] MEDS: HYDROcodone/Acetamin 5/325 tab ORAL PRN ×2 (05:37→14:37)
[2020-09-28 06:24] LABS: BASOPHILS % (AUTO) 0.9 % (0.0-2.0); EOSINOPHILS % (AUTO) 4.9 % (0.0-3.0); HEMATOCRIT 39.2 % (37.0-47.0); HEMOGLOBIN 12.4 G/DL (12.0-16.0); LYMPHOCYTES % (AUTO) 23.5 % (20.0-45.0); MEAN CORPUSCULAR VOLUME 93 FL (80-99); MONOCYTES % (AUTO) 9.3 % (1.0-10.0); NEUTROPHILS % (AUTO) 61.4 % (45.0-75.0); PLATELET COUNT 178 K/UL (150-450); RED BLOOD COUNT 4.23 M/UL (4.20-5.40); RED CELL DISTRIBUTION WIDTH 14.1 % (11.6-14.8)
[2020-09-28 06:48] LABS: ALBUMIN/GLOBULIN RATIO 0.9 (1.0-2.7); BILIRUBIN,TOTAL 0.1 MG/DL (0.2-1.0); CALCIUM 8.5 MG/DL (8.5-10.1); CREATININE 1.6 MG/DL (0.55-1.30); PHOSPHORUS 4.1 MG/DL (2.5-4.9); POTASSIUM 4.4 MMOL/L (3.5-5.1)
--- NOTE | 2020-09-28 08:00 | NUR ---
NURSE NOTES: RECIEVED PT. AWAKE AND ALERT TALKING ON THE PHONE @BEDSIDE.NO S/S OF DISTRESS NOTED @ THIS TIME.CALL LIGHT WITHIN REACH.ALL NEEDS ATTENDED.WILL CONTINUE TO MONITOR.PLAN OF CARE DISCUSSED.
--- NOTE | 2020-09-28 08:20 | NUR ---
NURSE HAND-OFF: Important Events on Shift:[Call made to dr Ivory in regards to pt low bp. New orders processed and dr aware. Endorsed to am rn] Patient Status: [stable] Diet: [regular no fruits or vegetables] Pending Orders: [n/a] Pending Results/Labs:[n/a] Pending MD notification:[n/a] Latest Vital Signs: Temperature 97.5 , Pulse 75 , B/P 89 /58 , Respiratory Rate 19 , O2 SAT 97 , Nasal Cannula, O2 Flow Rate 2.0 . Vital Sign Comment: [bp low NOC shift. Dr Ivory aware] Latest Valle Fall Score: 35 Fall Risk: Medium Risk Safety Measures: Call light Within Reach, Bed Alarm , Side Rails Side Rails x2, Bed position Low and Locked. Fall Precautions: Door Sign Patient Fall Education Report given to [PALMIRA Duenas].
[2020-09-28] MEDS: Sodium Chloride 1gm Tab ORAL SCH ×2 (09:27→19:17)
[2020-09-28] MEDS: Vitamin B Complex Tab ORAL SCH (09:27)
--- NOTE | 2020-09-28 09:41 | General Progress Note ---
Progress Note Progress Note AVSS XRay left foot shows possible tiny chip fracture head of distal phalanx left 3rd toe. Tolerating diet Abdomen soft, stoma healing nicely Urine 1400 BCIR ileo 2345 (has shortened bowel syndrome) BUN 11 Cr up 1.6 Albumin up 3.0 Imp: Stable Plan; Maintain indwelling Simon Pouch catheter to continuous gravity drainage Continue I&O, f/u labs Continue IV antibiotics Micheal Ivory MD Sep 28, 2020 09:41
[2020-09-28] MEDS ORDERED: Tubing IV Secondary IV ONE (15:55)
[2020-09-28] MEDS ORDERED: NS Irrig 1000ml ONE (15:55)
[2020-09-28] MEDS: NS w/KCl 20mEq 1000ml 1,000 ML IV SCH ×2 (18:00→21:20)
--- NOTE | 2020-09-28 19:05 | NUR ---
CASE MANAGEMENT:REVIEW 09/28/20 SI: POD #2 97.9 80 16 102/64 100% ON RA CR+1.6 IS: IMODIUM BEFORE MEALS IVF+KCL@50/HR NORCO PO Q4HRS PRN IV LEVAQUIN Q24 IV VENOFER QHS : MED/SURG STATUS 3 EAST
--- NOTE | 2020-09-28 19:35 | NUR ---
HAND-OFF: Report given to ANA CHAVIS.
[2020-09-28] MEDS: Iron Sucrose 100 MG in NS 55 ML IVPB SCH (21:17)
[2020-09-28] MEDS: Dyna-Hex 2% Top Sol 2oz TOPIC SCH (21:20)
[2020-09-29] VITALS: BP 81/49
--- NOTE | 2020-09-29 00:46 | NUR ---
nurse's notes: BP at [place] noted to be as follows: 75/49, 76/49, 81/49; patient is asymtomatic; denies any distress; VM left for Dr. Ivory; awaiting callback.
[2020-09-29 04:00] VITALS: BP 105/70
[2020-09-29] MEDS: HYDROcodone/Acetamin 5/325 tab ORAL PRN ×4 (05:54→18:13)
[2020-09-29 05:57] LABS: BASOPHILS % (AUTO) 1.3 % (0.0-2.0); EOSINOPHILS % (AUTO) 6.7 % (0.0-3.0); HEMATOCRIT 39.6 % (37.0-47.0); HEMOGLOBIN 12.3 G/DL (12.0-16.0); LYMPHOCYTES % (AUTO) 22.9 % (20.0-45.0); MEAN CORPUSCULAR VOLUME 92 FL (80-99); MONOCYTES % (AUTO) 7.7 % (1.0-10.0); NEUTROPHILS % (AUTO) 61.5 % (45.0-75.0); PLATELET COUNT 152 K/UL (150-450); RED BLOOD COUNT 4.32 M/UL (4.20-5.40); RED CELL DISTRIBUTION WIDTH 13.7 % (11.6-14.8); WHITE BLOOD COUNT 6.5 K/UL (4.8-10.8)
[2020-09-29 06:12] LABS: ALBUMIN 2.8 G/DL (3.4-5.0); ALBUMIN/GLOBULIN RATIO 0.9 (1.0-2.7); BILIRUBIN,TOTAL 0.2 MG/DL (0.2-1.0); CALCIUM 8.6 MG/DL (8.5-10.1); CREATININE 1.6 MG/DL (0.55-1.30); PHOSPHORUS 3.8 MG/DL (2.5-4.9)
--- NOTE | 2020-09-29 07:40 | NUR ---
NURSE HAND-OFF: Important Events on Shift: ileostomy output for this shift was negative 20ml; total uop = 900; c/o abdominal pain at around 0500; 1 tab norco given; no falls, sobs or chest pain complaints received; deferred 0600 imodium dose. otherwise, no significant changes this shift. Patient Status: stable at this time Diet: see chart Pending Orders: see chart Pending Results/Labs: see chart Pending MD notification: see chart Latest Vital Signs: Temperature 97.9 , Pulse 72 , B/P 105 /70 , Respiratory Rate 18 , O2 SAT 97 , Nasal Cannula, O2 Flow Rate 2.0 . Vital Sign Comment: see chart Latest Valle Fall Score: 35 Fall Risk: Medium Risk Safety Measures: Call light Within Reach, Bed Alarm , Side Rails Side Rails x2, Bed position Low and Locked. Fall Precautions: Patient Fall Education Report given to PALMIRA milner .
--- NOTE | 2020-09-29 07:45 | NUR ---
NURSE NOTES: Received report from PALMIRA Brannon. Pt in bed, alert and oriented. at bedside. Breathing even and unlabored in RA, pt denied pain at this time. Ileo in place, draining to gravity. According to night nurse, ileo output -20. Assessed abdomen, noted little distended and abdomen hard to touch. Will follow up with Dr. Ivory. IV in place, infusing IVF as ordered. Bed at lowest level. Call light within reach. Pt will continue to be monitored.
[2020-09-29 08:00] VITALS: BP 95/61
[2020-09-29] MEDS: Sodium Chloride 1gm Tab ORAL SCH ×2 (08:44→18:12)
[2020-09-29] MEDS: Vitamin B Complex Tab ORAL SCH (08:45)
--- NOTE | 2020-09-29 09:00 | NUR ---
NURSE NOTES: Pt was seen by Dr. Ivory. Ileo cath was flushed with about 80cc NS and 300cc output came out. Ileo hargrove cath removed and stent placed, cover with 4x4 and paper tape. Will supervise self intubation per MD.
--- NOTE | 2020-09-29 09:57 | General Progress Note ---
Progress Note Progress Note AVSS Had very thick ileo output after imodium ac - catheter flushed and aspirated of 400cc effluent Abdomen now soft, non-distended Simon pouch catheter removed - large stents inserts readily Labs all stable except Mg 1.7 Imp: Improved Plan: Removed indwelling Simon pouch catheter Begin RN supervised BCIR self-intubations with 30FR Winter Maintain large stent in stoma 29/03 x 1 month anticipate discharge early AM Rx - 0 f/u office 10/03 Micheal Ivory MD Sep 29, 2020 09:57
[2020-09-29 12:00] VITALS: BP 98/66
--- NOTE | 2020-09-29 12:00 | NUR ---
NURSE NOTES: Pt able to intubate herself supervised by nurse without complication. output 250cc, brown liquid.
--- NOTE | 2020-09-29 15:00 | NUR ---
NURSE NOTES: Pt's own home meds picked up from pharmacy by nurse and given to patient.
[2020-09-29 16:00] VITALS: BP 101/68
--- NOTE | 2020-09-29 19:15 | NUR ---
NURSE NOTES: Received report from PALMIRA Smart. Pt is in bed in no distress. IVF infusing well and ordered to be DC'd at bedtime. Pt is able to self intubate with assistance from the nurse. Call light within reach, bed in lowest position, side rails up x2. Pt is set to be discharged at 0700 on 09-30-20
--- NOTE | 2020-09-29 19:30 | NUR ---
NURSE HAND-OFF: Important Events on Shift:[Removed hargrove cath and started self intubation without complication] Patient Status: [stable] Diet: [reg] Pending Orders: [] Pending Results/Labs:[] Pending MD notification:[] Latest Vital Signs: Temperature 98.3 , Pulse 91 , B/P 101 /68 , Respiratory Rate 18 , O2 SAT 97 , Nasal Cannula, O2 Flow Rate 2.0 . Vital Sign Comment: [stable] Latest Valle Fall Score: 35 Fall Risk: Medium Risk Safety Measures: Call light Within Reach, Bed Alarm , Side Rails Side Rails x2, Bed position Low and Locked. Fall Precautions: Patient Fall Education Report given to [PALMIRA Thomas].
[2020-09-29] MEDS: Dyna-Hex 2% Top Sol 2oz TOPIC SCH (19:55)
[2020-09-29 20:00] VITALS: BP 103/66
[2020-09-30] VITALS: BP 101/62
[2020-09-30] MEDS ORDERED: Heplock Flush 100 units/ml 3 ml syr INJ SCH (02:30)
--- NOTE | 2020-09-30 06:46 | NUR ---
NURSE NOTES: Patient was discharged and left via [employer]. Pt's was at her side. They had all of their belongings. Discharge packet was given.
--- NOTE | 2020-09-30 08:50 | General Progress Note ---
Progress Note Progress Note AVSS Patient did well with BCIR continent ileostomy self-intubations using 30 Fr Winter catheter I&O satisfactory Using large stent without difficulty Imp: doing well Plan: discharge Rx - 0 F/U 10/03 and prn Full instructions/limitations/supplies discussed/provided Micheal Ivory MD Sep 30, 2020 08:50
--- NOTE | 2020-10-03 15:10 | Discharge Summary ---
Discharge Summary Discharge Summary _ Date of admission: 09/23/2020 Date of discharge: 09/30/[address] Ivory History of Present Illness and Brief Hospital Course Ms. Gonzalez is a 55-year-old female with history of Simon continent intestinal [place] who presented to the ED for evaluation of abdominal pain and difficul ty intubating. Patient had the stoma for 8 years and had a history of one stoma revision. She reported that over the past several days, she had difficulty in increased pain intubating. The patient had developed excessive scar tissue around the stoma, but this had recently become very tight and very painful and difficult for her to intubate and the tissues tear when she inserted her 30 [place] drainage catheter. She reported using a small stent at night because a large stent would not enter the stoma opening. She was scheduled for stoma revision with Dr. Ivory. She was taken to the operating room and patient underwent revision of stoma procedure. The details of the procedure is listed in the operative notes. The patient tolerated the procedure well. Patient began tolerating diet. Patient's abdomen was soft and stoma was healing well. Intake and output were closely monitored and IV antibiotics were continued. By the day of discharge, patient was able to use large stent without difficulty. Patient was medically stable for discharge and was discharged home on 09/30/2020. Patient was instructed to follow-up at the office on 10/03/2020. Consultants: None Discharge Condition Improved and stable Discharge Activity Advance as tolerated Final diagnoses Simon continent ileostomy, recurrent stoma stricture. History of ulcerative colitis. 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 Perineal proctectomy in January 1981. 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 Laparotomy for partial small-bowel obstruction due to adhesions with small-bowel obstruction in April 2013. 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 Revision of stoma stenosis and repair of fistula to access segment in August 2016. Repair of parastomal hernia and revision of stoma in August 2017. Repair of parastomal hernia and repair of collar in April 2018. Office procedure with cautery of stoma stenosis on July 13, 2019. I have been assigned to dictate discharge summary for this account. I was not involved in the patient's management Jorge L Gauthier Oct 03, 2020 15:10
== END 2020-09-30 06:55 | disposition home or self-care (01) | DRG 348 ==
LOC: EMR 16:04 → 3E 16:37 → EDBEDREQ 17:29
PROC: 0DJD8ZZ Inspection of Lower Intestinal Tract, Via Natural or Artificial Opening Endoscopic (ICD-10-PCS; principal; 2020-09-24 12:57)
PROC: 0WQFXZ2 Repair Abdominal Wall, Stoma, External Approach (ICD-10-PCS; 2020-09-26)
DX: K94.13 Enterostomy malfunction (principal); K91.2 Postsurgical malabsorption, not elsewhere classified; K94.12 Enterostomy infection; Y83.3 Surgical operation with formation of external stoma as the cause of abnormal reaction of the patient, or of later complication, without mention of misadventure at the time of the procedure; L90.5 Scar conditions and fibrosis of skin; Z88.1 Allergy status to other antibiotic agents; Z88.0 Allergy status to penicillin; Z88.2 Allergy status to sulfonamides; Z87.19 Personal history of other diseases of the digestive system; E05.90 Thyrotoxicosis, unspecified without thyrotoxic crisis or storm
CPT/HCPCS: 36415; 71045; 80048; 80053; 81001; 82607; 82728; 82746; 83540; 83735; 84100; 85025; 85610; 85730; 86850; 86900; 86901; 87040; 93005; 94003; 94150; 96361; 96365; 99285; J2250; J2405; J7030; U0002